=== PATIENT | male | born 1955 ===

== ENCOUNTER 2023-12-22 12:48 | Outpatient (REF) | payer OTHER, SELFPAY ==
[2023-12-22 14:10] LABS: TSH 1.53 uIU/mL (0.36-3.74)
== END 2023-12-22 12:49 | disposition home or self-care (01) ==
LOC: LBN 12:48
PROVIDERS: PCP Internal Medicine Geriatric Medicine; Visit Provider Internal Medicine Geriatric Medicine
DX: E07.9 Disorder of thyroid, unspecified (principal)
CPT/HCPCS: 84443

== ENCOUNTER 2024-11-07 19:31 | Outpatient (REF) | payer OTHER, SELFPAY ==
[2024-11-07 21:58] LABS: Bilirubin Negative (Negative); Blood Negative (Negative); Clarity Clear (Clear); Glucose Negative (Negative); Ketones Negative (Negative); Leukocyte Esterase Negative (Negative); Nitrite Negative (Negative); Urobilinogen 0.2 mg/dL (Up to 0.2)
== END 2024-11-07 19:32 | disposition home or self-care (01) ==
LOC: LBN 19:31
PROVIDERS: PCP Internal Medicine Geriatric Medicine; Visit Provider Internal Medicine Geriatric Medicine
DX: R30.0 Dysuria (principal); Z87.442 Personal history of urinary calculi; R82.89 Other abnormal findings on cytological and histological examination of urine
CPT/HCPCS: 81003; 87086